=== PATIENT | male | born 1945 | race Caucasian/White ===

== ENCOUNTER → 2018-11-20 | Outpatient (CLI) | payer OTHER ==
[~2018-11-20] MED LIST: ACETAMINOPHEN325 M1 PO; ADULT LOW DOSE81 MG PO; EASY-LAX100 MG PO; EXCEDRIN CAPLE1 EACH; EXCEDRIN CAPLE1 EACH PO; FIBER CHOICE1 EACH PO; FIBER500 MG PO; FIBERCON625 M1 PO; FISHOIL; FLAGYL500 MG PO; GLUCOPHAGE500 MG PO; HYDROCODON-ACE1 EAC1 PO; HYDROCODON-ACE1 EAC7 PO; HYDROCODON-ACE1 EACH PO; LEVAQUIN 500 M500 M2 PO; LIPITOR 20 MG T20 M1 PO; LIPITOR40 MG PO; LISINOPRIL10 MG PO; LOPRESSOR25 PO; METFORMIN HCL500 MG PO; MINIPRIN81 MG; NIACIN 500 MG500 M1 PO; OMEPRAZOLE40 MG PO; PLAVIX 75 MG TA75 M1 PO; PRILOSEC 20 MG20 MG PO; PROAIR RESPICL90 MCG IH; PROTONIX40 M1 PO; TAMSULOSIN HCL0.4 MG PO; TOPROL XL25 MG PO; VITAMIN D-32000 UNIT; ZOFRAN ODT4 MG PO
== END ==
LOC: M.ULTRA 08:39
DX: I65.23 Occlusion and stenosis of bilateral carotid arteries (principal); I10 Essential (primary) hypertension; E11.9 Type 2 diabetes mellitus without complications; Z95.1 Presence of aortocoronary bypass graft; Z88.1 Allergy status to other antibiotic agents; Z88.5 Allergy status to narcotic agent